=== PATIENT | male | born 1985 ===

== ENCOUNTER 2019-12-23 04:29 | Emergency (ER) | payer SELFPAY ==
[~2019-12-23] VITALS: Ht 175.3 cm; Wt 85.2 kg
[2019-12-23 04:34] VITALS: BP 155/102
[2019-12-23] MEDS ORDERED: KETOROLAC 60 MG/2 ML ONE (05:39)
[2019-12-23] MEDS ORDERED: ACETAMINOPHEN 500 MG TABLET ONE (05:40)
--- NOTE | 2019-12-23 05:51 | NUR ---
Patient presents to ER c/o fever and a MC. Patient states it just started this morning. He denies abd pain, N/V/D. No cough noted. Patient is in NAD. Respirations even and unlabored.
--- NOTE | 2019-12-23 05:53 | NUR ---
Meds admin per jan. Documented Toradol then patient refused IM injection. Toradol not administered.
[2019-12-23] MEDS ORDERED: KETOROLAC 60 MG/2 ML IM ONE (06:00)
[2019-12-23] MEDS ORDERED: PLEASE ENTER ALLERGIES MC SCH (06:00)
[2019-12-23] MEDS ORDERED: KETOROLAC 30 MG/1 ML IM ONE (06:00)
[2019-12-23] MEDS ORDERED: ACETAMINOPHEN 500 MG TABLET PO ONE (06:00)
[2019-12-23 06:08] LABS: RAPID INFLUENZA A POSITIVE (Negative); RAPID INFLUENZA B Negative (Negative)
--- NOTE | 2019-12-23 06:49 | NUR ---
Discharge instructions given. All questions and concerns addressed. Patient ambulatory with a steady gait. Belongings with patient.
== END 2019-12-23 06:50 | disposition home or self-care (01) ==
LOC: ED 06:44
DX: J10.1 Influenza due to other identified influenza virus with other respiratory manifestations (principal)
CPT/HCPCS: 87400; 96372; 99283; J1885